=== PATIENT | female | born 1980 | race Caucasian/White ===

== ENCOUNTER → 2019-04-23 | Outpatient (CLI) | payer OTHER | LOC: BC 10:33 | DX: N60.02 Solitary cyst of left breast (principal); R92.2 Inconclusive mammogram ==

== ENCOUNTER → 2019-12-04 | Outpatient (CLI) | payer OTHER | LOC: BC 12:21 | DX: R92.1 Mammographic calcification found on diagnostic imaging of breast (principal) ==

== ENCOUNTER → 2020-10-22 | Outpatient (CLI) | payer OTHER | LOC: BC 09:20 | DX: R92.2 Inconclusive mammogram (principal); R92.1 Mammographic calcification found on diagnostic imaging of breast ==